=== PATIENT | female | born 1990 | race Caucasian/White ===

== ENCOUNTER → 2022-07-03 13:18 | Observation (INO) ==
[~2022-07-03 13:18] MED LIST: Ringers Solution, Lactated 1,000 ML IVC SCH; Ringers Solution, Lactated 1,000 ML ONE
== END | disposition home or self-care (01) ==
LOC: 1NENULAB
PROVIDERS: ADMIT Registered Nurse; ATTEND Registered Nurse

== ENCOUNTER 2022-07-06 10:00 | Inpatient (IN) ==
[2022-07-06] MEDS ORDERED: Famotidine 20 MG/2 ML VIAL IVP PRN (10:12)
[2022-07-06] MEDS ORDERED: *HR* Nalbuphine 10 MG/ML AMPUL IV PRN (10:12)
[2022-07-06] MEDS ORDERED: Naloxone 0.4 MG/ML INJ IVP PRN ×2 (10:12→13:12)
[2022-07-06] MEDS ORDERED: Metoclopramide 10 MG/2 ML VIAL IVP PRN (10:12)
[2022-07-06] MEDS ORDERED: Ringers Solution, Lactated 1,000 ML IVC SCH (10:15)
[2022-07-06 10:58] LABS: Basophils % 0.3 %; Immature Granulocytes % 0.5 % (0-4); Platelet Count 173 K/mcL (140-400); Segmented Neutrophils % 74.6 %
[2022-07-06 11:00] LABS: Eosinophils # 0.1 K/mcL (0.0-0.6); Hematocrit 36.2 % (35.3-44.9); Immature Platelets 18.8 % (1.1-6.1); Lymphocytes # 1.5 K/mcL (0.6-4.6); Lymphocytes % 15.5 %; Mean Corpuscular HGB Conc 33.1 g/dL (31.6-35.5); Mean Corpuscular Hemoglobin 29.1 pg (28.0-33.3); Mean Corpuscular Volume 87.9 fL (83.0-100.0); Mean Platelet Volume 13.3 fL (9.4-12.4); Monocytes # 0.8 K/mcL (0.0-1.3); Monocytes % 8.1 %; Neutrophils # 7.1 K/mcL (1.6-8.9); Red Blood Count 4.12 M/mcL (3.82-4.97); White Blood Count 9.5 K/mcL (4.3-11.1)
[2022-07-06 13:08] LABS: Amphetamine Screen,Urine Negative ng/mL (Cutoff=1000); Barbiturate Screen,Urine Negative ng/mL (Cutoff=200); Benzodiazepines Screen,Urine Negative ng/mL (Cutoff=200); Cannabinoid Screen,Urine Negative ng/mL (Cutoff = 50); Cocaine Screen,Urine Negative ng/mL (Cutoff= 300); Opiate Screen,Urine Negative ng/mL (Cutoff=300); Phencyclidine Screen,Urine Negative ng/mL (Cutoff=25)
[2022-07-06] MEDS ORDERED: EPHEDrine 50 MG/ML VIAL IVP PRN (13:12)
[2022-07-06] MEDS ORDERED: Ropivacaine/PF 0.2% 20 ML VIAL EP ONE (13:12)
[2022-07-06] MEDS ORDERED: Ondansetron 4 MG/2 ML VIAL IVP PRN (13:12)
[2022-07-06] MEDS ORDERED: Epidural Premix (fent/bupiv) 110 ML EP SCH (13:15)
[2022-07-06] MEDS ORDERED: Oxytocin 30 UNIT/503 ML BAG IVC SCH (13:45)
[2022-07-06 18:33] LABS: Creatinine,Urine 96 mg/dL; Protein/Creatinine Ratio,Urine 0.12 mg/mg (0.00-0.20)
[2022-07-06 18:34] LABS: Alanine Aminotransferase 7 Units/L (7-52); Aspartate Amino Transferase 13 Units/L (13-39); BUN/Creatinine Ratio 15 (6-26); Blood Urea Nitrogen 10 mg/dL (6-20); Lactate Dehydrogenase 205 Units/L (140-271); Uric Acid 5.7 mg/dL (2.3-7.6); eGFR For African Americans > 60 (> 60); eGFR For Non-African Americans > 60 (> 60)
[2022-07-07] MEDS ORDERED: Benzocaine/Menthol 56 GM AEROSOL SPRAY TP PRN (01:06)
[2022-07-07] MEDS ORDERED: Ondansetron ODT 4 MG TAB.RAPDIS SL PRN (01:06)
[2022-07-07] MEDS ORDERED: Lanolin 7 G OINT...G. TP PRN (01:06)
[2022-07-07] MEDS ORDERED: Oxytocin 30 UNIT/503 ML BAG IVC SCH (01:06)
[2022-07-07] MEDS: Ibuprofen 600 MG TABLET PO SCH ×3 (02:30→15:39)
[2022-07-07] MEDS: Acetaminophen 325 MG TABLET PO SCH ×3 (02:30→15:39)
[2022-07-07] MEDS: Prenatal Vit/FA 1 EACH TABLET PO SCH (09:08)
[2022-07-08 07:21] VITALS: PULSE 75; TEMP 98.1; O2SAT 98
[2022-07-08] MEDS: Prenatal Vit/FA 1 EACH TABLET PO SCH (07:31)
[2022-07-08 10:00] VITALS: BP 129/85
== END 2022-07-08 11:00 | disposition home or self-care (01) | DRG 807 ==
LOC: 1NENULAB 10:00 → 1NENUOBS 07-07 01:05
PROVIDERS: ADMIT Registered Nurse; ATTEND Registered Nurse